=== PATIENT | female | born 1995 | race African-American/Black ===

== ENCOUNTER 2017-06-13 09:24 | Emergency (ER) | payer SELFPAY ==
[2017-06-13 09:29] VITALS: BP 129/78; BMI 22.6
[2017-06-13 10:15] LABS: HEMATOCRIT 35.1 % (36.0-47.0); HEMOGLOBIN 12.2 g/dL (12.0-16.0)
--- NOTE | 2017-06-13 10:19 | DR.GENAD ---
HPI - PCP Primary Care Physician: NFD - Complaint/Symptoms Chief Complaint Doctors Comments: Patient admits states that initially she was bleedin heavy but now not changing pads frequently. Shed denies abdominal pain. She has not seen OB Chief Complaint:: PATIENT HAD A MISCARRIAGE LITTLE OVER TWO WEEKS AGO. PATIENT STATED THAT SHE IS BLEEDING VERY HEAVY BUT STATED THAT SHE DID PASS WHAT SHE TOUGHT WAS THE FETUS. - Source History Provided: Patient - Mode of Arrival Mode of Arrival: Ambulatory - Timing Onset of Chief Complaint: 06/05/17 PMH - PMH Past Medical History: No Past Surgical History: No - Family History History of Family Medical Conditions: Yes Family Medical History: Diabetes Mellitus, Coronary Artery Disease - Social History Does patient currently use any type of tobacco product: Yes Have you used tobacco products in the last 12 months: Yes Type of Tobacco Use: Cigarettes Does any household member use tobacco: No Alcohol Use: None Do you use any recreational Drugs:: No Lives With: Family Lives Where: Home - infectious screening In the last 2 months have you had wt loss of >10#?: NO Have you had fever, night sweats or hemotysis?: No Have you traveled outside the country in the last 6 months?: No Isolation: Standard ROS - Review of Systems Eyes: No Symptoms Reported ENTM: No Symptoms Reported Respiratoy: No Symptoms Reported Cardiovascular: No Symptoms Reported Gastrointestinal/Abdominal: No Symptoms Reported Genitourinary: No Symptoms Reported Neurological: No Symptoms Reported Musculoskeletal: No Symptoms Reported Integumentary: No Symptoms Reported Hematologic/Lymphatic: No Symptoms Reported Endocrine: No Symptoms Reported Psychiatric: No Symptoms Reported All Other Systems: Reviewed and Negative PE - Vital Signs Vitals: Pulse Rate 69 Respiratory Rate 20 Blood Pressure 129/78 O2 Sat by Pulse Oximetry 100 - General Limitations: No Limitations General Appearance: Alert, In No Apparent Distress - Head Head Exam: Normal Inspection, Atraumatic - Eyes Eye exam: Normal Appearance, PERRL, EOMI - ENT ENT Exam: Normal Exam External Ear Exam: Normal External Inspection TM/Canal Exam: Bilateral Normal Nose Exam: Normal Nose Exam Mouth Exam: Normal Inspection Throat Exam: Normal Inspection - Neck Neck Exam: Normal Inspection - Chest Chest Inspection: Normal Inspection - Respiratory Respiratory Exam: Normal Lung Sounds Bilat Respiratory Exam: Bilateral Clear to Auscultation - Cardiovascular Cardiovascular Exam: Regular Rate, Normal Rhythm - Abdominal Exam Abdominal Exam: Normal Inspection, Normal Bowel Sounds Abdominal Tenderness: negative: RUQ, RLQ, LUQ, LLQ, Epigastrium, Suprapubic, Diffuse, Mild, Moderate, Severe, Other - Extremities Extremities Exam: Normal Inspection, Full ROM - Back Back Exam: Normal Inspection, Full ROM - Neurologic Neurological Exam: Alert, Oriented X3, CN II-XII Intact - Psychiatric Psychiatric Exam: Normal Affect, Normal Mood - Skin Skin Exam: Warm, Intact ROR - Labs Reviewed Laboratory Results Reviewed?: Yes (HCG 93, Leuk +,rbc 5+) Result Diagrams: 06/13/17 10:00 Laboratory: Hgb 12.2 g/dL (12.0-16.0) 06/13/17 10:00 Hct 35.1 % (36.0-47.0) L 06/13/17 10:00 HCG, Quant 93 mIU/mL (0-6) H 06/13/17 10:00 Specimen Type Clean catch urine 06/13/17 10:50 Urine Color Yellow (YELLOW) 06/13/17 10:50 Urine Appearance Hazy (CLEAR) 06/13/17 10:50 Urine pH 6.0 (5.0 - 8.0) 06/13/17 10:50 Ur Specific [place] 1.015 (1.000-1.030) 06/13/17 10:50 Urine Protein 2+ (NEGATIVE) 06/13/17 10:50 Urine Glucose (UA) Negative (NEGATIVE) 06/13/17 10:50 Urine Ketones 2+ (NEGATIVE) 06/13/17 10:50 Urine Occult Blood 5+ (NEGATIVE) 06/13/17 10:50 Urine Nitrite Negative (NEGATIVE) 06/13/17 10:50 Urine Bilirubin Negative (NEGATIVE) 06/13/17 10:50 Urine Urobilinogen Normal (NORMAL) 06/13/17 10:50 Ur Leukocyte Esterase 1+ (NEGATIVE) 06/13/17 10:50 Urine RBC 20-25 /HPF (NEGATIVE) 06/13/17 10:50 Urine WBC 0-3 /HPF (NEGATIVE) 06/13/17 10:50 Ur Squamous Epith Cells Rare /HPF (NEGATIVE) 06/13/17 10:50 Urine Bacteria Trace /HPF (NEGATIVE) 06/13/17 10:50 Urine Mucus Few /HPF (NEGATIVE) 06/13/17 10:50 Ur Culture Indicated? No/not indicated 06/13/17 10:50 - Diagnosis Discharge Problem: Cystitis - Discharge Plan Condition: Stable - Follow ups/Referrals Follow ups/Referrals: NFD,None [Primary Care Provider] - 3 days - Instructions
[2017-06-13 11:05] LABS: BILIRUBIN,URINE NEGATIVE (NEGATIVE); BLOOD/HEMOGLOBIN,URINE 5+ (NEGATIVE); GLUCOSE, URINE NEGATIVE (NEGATIVE); KETONES,URINE 2+ (NEGATIVE); LEUKOCYTE ESTERASE ,URINE 1+ (NEGATIVE); NITRITES,URINE NEGATIVE (NEGATIVE); PROTEIN,URINE 2+ (NEGATIVE); UROBILINOGEN,URINE NORMAL (NORMAL)
[2017-06-13 11:25] LABS: APPEARANCE,URINE HAZY (CLEAR); COLOR,URINE YELLOW (YELLOW)
[2017-06-13 11:26] LABS: BACTERIA,URINE TRACE /HPF (NEGATIVE); MUCUS,URINE FEW /HPF (NEGATIVE); RBC,URINE 20-25 /HPF (NEGATIVE); SQUAMOUS EPITHELIAL CELL,UR RARE /HPF (NEGATIVE)
== END 2017-06-13 11:39 | disposition home or self-care (01) ==
LOC: ER 09:37
DX: N30.90 Cystitis, unspecified without hematuria (principal); Z3A.01 Less than 8 weeks gestation of pregnancy
CPT/HCPCS: 36415; 81001; 84702; 85014; 85018; 99282